=== PATIENT | female | born 1980 | race Asian ===

== ENCOUNTER 2022-06-18 14:00 | Emergency (ER) | payer SELFPAY ==
[2022-06-18] VITALS (33 sets, daily range): BP systolic 106–137; BP diastolic 57–87; PULSE 88–110; RESP 9–20; TEMP 36.7–37.3; O2SAT 97–100
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
--- NOTE | 2022-06-18 14:25 | ECG_ITS ---
Measurements Intervals [place] Rate: 98 P: 67 IN: 165 QRS: 50 QRSD: 81 T: 39 QT: 348 QTc: 445 Interpretive Statements SINUS RHYTHM WITHIN NORMAL LIMITS NO PRIOR ECG AVAILABLE FOR COMPARISON Electronically Signed On 06-18-2022 15:43:14 CDT by Zachary Weiner M.D.
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
[2022-06-18] MEDS: LACTATED RINGERS 1,000 ML 999 ML IV CONT (15:16)
[2022-06-18 15:36] LABS: Basophils Percent Auto 0.3 % (0.2-1.2); Eosinophils Absolute Auto 0.1 K/mm3 (0-0.3); Eosinophils Percent Auto 0.8 % (0-4.4); Hematocrit 26.8 % (37.0-47.0); Immature Granulocyte Absolute 0.07 K/mm3 (0.00-0.031); Immature Granulocyte Percent A 0.4 % (0-0.5); Immature Platelet Fraction Pct 7.2 % (0.9-11.2); Lymphocytes Absolute Auto 1.96 K/mm3 (0.9-3.2); Lymphocytes Percent Auto 12.5 % (18.3-44.2); Mean Corpuscular HGB Conc 26.1 g/dl (32-36); Mean Corpuscular Hemoglobin 16.4 pg (26-34); Mean Corpuscular Volume 62.9 fl (80-100); Monocytes Absolute Auto 1.2 K/mm3 (0.1-0.6); Monocytes Percent Auto 7.4 % (2.6-8.5); Neutrophils Absolute Auto 12.3 K/mm3 (1.3-6.7); Neutrophils Percent Auto 78.6 % (45.5-73.1); Platelet Count Result 241 k/mm3 (150-375); Red Blood Count 4.26 M/mm3 (4.2-5.4); Red Cell Distribution Width 20.7 % (11.5-14.5); White Blood Count 15.7 K/mm3 (4.5-10.0)
[2022-06-18 15:38] LABS: Alanine Aminotransferase 22 U/L (6-35); Albumin Level 4.4 g/dL (3.5-5.1); Alkaline Phosphatase 75 U/L (38-126); Anion Gap 8 mmol/L (8-16); Aspartate Amino Transferase 22 U/L (14-36); Bilirubin,Total 0.5 mg/dL (0.2-1.3); Blood Urea Nitrogen 6 mg/dL (7-17); Calcium 8.8 mg/dL (8.4-10.2); Carbon Dioxide 25 mmol/L (22-30); Chloride 105 mmol/L (98-107); Estimated CRCL calculation 85 ml/min; Estimated Glomerular Filt Rate > 60; Glucose 98 mg/dL (65-110); Sodium 138 mmol/L (137-145)
[2022-06-18 15:43] LABS: Appearance Urine Cloudy (Clear); Bacteria Urine None Seen /hpf; Bilirubin Urine Negative (Negative); Blood Urine Negative (Negative); Color Urine Yellow (Yellow); Glucose Urine UA Negative (Negative); Ketones Urine Negative (Negative); Leukocyte Esterase Ur Trace LEU/UL (Negative); Nitrate Urine Negative (Negative); Non Pathogenic Casts 0-2; Protein Urine Negative (Negative); RBC Urine 0-2 /hpf (0-2); Squamous Epithelial Cell Urine Moderate /hpf (Few); Urobilinogen Urine 0.2 mg/dL (<2.0); pH Urine 5.5 (5.0-9.0)
[2022-06-18 15:48] LABS: Add Urine Microscopic? YES
[2022-06-18 15:50] LABS: Troponin I < 0.012 ng/mL (0.000-0.034)
[2022-06-18 15:57] LABS: D Dimer 0.27 ug/mL (<0.48)
[2022-06-18 16:04] LABS: Platelet Estimate Adequate (Adequate)
[2022-06-18 16:05] LABS: Hypochromasia 1+ (NORMAL); Schistocytes Rare (NORMAL)
[2022-06-18 16:06] LABS: Anisocytosis 3+ (NORMAL); Ovalocytes 1+ (NORMAL)
[2022-06-18 16:07] LABS: Microcytosis 1+ (NORMAL)
[2022-06-18] MEDS: SODIUM CHLORIDE 0.9% IV 250 ML 30 ML IV CONT (18:22)
[2022-06-18] MEDS: TUBING, BLOOD PLUM PUMP TUBING 1 EACH XX (18:22)
[2022-06-18] MEDS: ACETAMINOPHEN 500 MG TABLET 1000 MG PO (18:56)
[2022-06-18 19:08] LABS: Troponin I < 0.012 ng/mL (0.000-0.034)
[2022-06-18 19:23] LABS: Influenza A QL RT-PCR Negative (Negative); Influenza B QL RT-PCR Negative (Negative); RSV RNA, RT-PCR Negative (Negative); SARS-CoV-2 RNA PCR Negative (Negative)
== END 2022-06-19 00:17 | disposition home or self-care (01) ==
PROVIDERS: Emergency Provider Emergency Medicine; PCP Family Medicine
DX: R55 Syncope and collapse (principal); V48.5XXA Car driver injured in noncollision transport accident in traffic accident, initial encounter
CPT/HCPCS: 36415; 36430; 71045; 80053; 81001; 81025; 84484; 85025; 85055; 85380; 86850; 86900; 86901; 86923; 87086; 87088; 87147; 87637; 93005; 96360; 96361; 99284; 99285; A9270; J7050; J7120; P9016